=== PATIENT | female | born 1950 | race Caucasian/White ===

== ENCOUNTER → 2019-03-07 09:11 | Outpatient (CLI) | payer MEDICARE, SELFPAY ==
[2019-03-07 10:18] LABS: Add Manual Diff / Slide Review NO; Basophils Absolute Auto 0 /uL (0-100); Eosinophils Absolute Auto 100 /uL (0-450); Eosinophils Percent Auto 2.2 % (2-4); Hematocrit 36.6 % (36-46); Lymphocytes Absolute Auto 2100 /uL (1100-4500); Lymphocytes Percent Auto 43.9 % (25-40); Mean Corpuscular HGB Conc 32.7 % (30-36); Mean Corpuscular Hemoglobin 26.7 PG (26-34); Mean Corpuscular Volume 81.6 fL (80-100); Monocytes Absolute Auto 500 /uL (0-900); Monocytes Percent Auto 9.8 % (3-14); Neutrophils Absolute Auto 2100 /uL (1500-7000); Neutrophils Percent Auto 43.1 % (50-75); Platelet Count 164 X10^3/uL (150-400); Red Blood Cell Count 4.48 X10^6/uL (4.0-5.2); Red Cell Distribution Width 14.6 % (11.6-14.8); White Blood Cell Count 4.9 X10^3/uL (4.5-11.0)
[2019-03-07 10:25] LABS: Hemoglobin A1C% w Est Avg Glu 9.3 % (4.0-6.0)
[2019-03-07 10:43] LABS: Creatinine Urine Random 85.7 mg/dL
[2019-03-07 10:48] LABS: Alanine Aminotransferase 20 IU/L (9-52); Albumin 3.9 g/dL (3.5-5.0); Albumin Globulin Ratio 1.4 (1.0-2.8); Alkaline Phosphatase 79 U/L (38-126); Aspartate Aminotransferase 31 IU/L (14-36); BUN Creatinine Ratio 21.4 (6-22); Bilirubin Total 0.4 mg/dL (0.2-1.3); Blood Urea Nitrogen 15 mg/dL (7-17); Calcium 9.6 mg/dL (8.4-10.2); Carbon Dioxide 25 mmol/L (22-32); Chloride 101 mmol/L (98-107); Cholesterol 121 mg/dL (140-199); Estimated Glomerular Filt Rate > 60.0 mL/min (>60); Globulin 2.8 g/dL (1.7-4.1); Glucose 195 mg/dL (80-110); HDL Cholesterol 55 mg/dL (40-60); HEMOLYSIS < 15 (0-50); LDL Cholesterol Calculated 34 mg/dL (<100); Potassium 4.5 mmol/L (3.4-5.1); Sodium 135 mmol/L (137-145); Total Protein 6.7 g/dL (6.3-8.2); Triglycerides 160 mg/dL (35-150)
[2019-03-07 10:50] LABS: Microalbumi Creatinin Ratio Ur 75.8 ug/mg CR (<30); Microalbumin Urine Random 6.5 mg/dL (0-1.6)
== END ==
PROVIDERS: Visit Provider Family Medicine
DX: E11.9 Type 2 diabetes mellitus without complications (principal); I10 Essential (primary) hypertension; E78.5 Hyperlipidemia, unspecified
CPT/HCPCS: 36415; 80053; 80061; 82043; 82570; 83036; 84443; 85025

== ENCOUNTER → 2019-04-02 17:52 | Outpatient (CLI) | payer MEDICARE, SELFPAY ==
--- NOTE | 2019-04-02 17:54 | DI.RAD.S_ITS ---
PROCEDURE: XR KNEE LT 3V INDICATIONS: Leg Pain, Lateral TECHNIQUE: 3 views of the knee were acquired. COMPARISON: None. FINDINGS: Bones: No acute fractures or dislocations. There are tricompartmental degenerative changes of the left knee with moderate lateral compartment joint space narrowing and prominent marginal osteophytes. There is expansile deformity of the proximal left fibular diaphysis with overlying soft tissue swelling. No identifiable intraosseous lesion. No suspicious periosteal reaction. Faint calcifications posterior to the fibula on the lateral view are favored to represent vascular calcifications. No overlying soft tissue mass lesions. Soft tissues: No joint effusion. No suspicious soft tissue calcifications. IMPRESSION: 1. Lateral knee soft tissue swelling without underlying fracture or dislocation. 2. Expansile deformity involving the proximal left tibial without focal intraosseous lesion, periosteal reaction, or overlying soft tissue mass. Findings may represent sequela of remote injury. Consider further evaluation with advanced imaging such as CT or MRI. 3. 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 Dictated by: Leon Rodriguez M.D. on 04/03/2019 at 12:37 Approved by: Leon Rodriguez M.D. on 04/03/2019 at 12:50
== END ==
PROVIDERS: PCP Family Medicine; Visit Provider Family Medicine
DX: M25.562 Pain in left knee (principal); M79.89 Other specified soft tissue disorders
CPT/HCPCS: 73562

== ENCOUNTER → 2019-07-19 09:19 | Outpatient (CLI) | payer MEDICARE, SELFPAY ==
[2019-07-19 09:54] LABS: Hemoglobin A1C% w Est Avg Glu 9.4 % (4.0-6.0)
[2019-07-19 10:25] LABS: Alanine Aminotransferase 27 IU/L (<35); Albumin 4.4 g/dL (3.5-5.0); Albumin Globulin Ratio 1.5 (1.0-2.8); Alkaline Phosphatase 88 U/L (38-126); Aspartate Aminotransferase 49 IU/L (14-36); BUN Creatinine Ratio 23.8 (6-22); Bilirubin Total 0.5 mg/dL (0.2-1.3); Blood Urea Nitrogen 19 mg/dL (7-17); Calcium 10.5 mg/dL (8.4-10.2); Carbon Dioxide 25 mmol/L (22-32); Chloride 101 mmol/L (98-107); Estimated Glomerular Filt Rate > 60.0 mL/min (>60); Globulin 2.9 g/dL (1.7-4.1); Glucose 149 mg/dL (80-110); HEMOLYSIS < 15 (0-50); Sodium 136 mmol/L (137-145); Total Protein 7.3 g/dL (6.3-8.2)
[2019-07-19 10:27] LABS: Potassium 5.4 mmol/L (3.4-5.1)
== END ==
PROVIDERS: PCP Family Medicine; Visit Provider Family Medicine
DX: E11.9 Type 2 diabetes mellitus without complications (principal); E78.5 Hyperlipidemia, unspecified; I10 Essential (primary) hypertension
CPT/HCPCS: 36415; 80053; 83036

== ENCOUNTER → 2019-12-12 08:13 | Outpatient (CLI) | payer MEDICARE, SELFPAY ==
[2019-12-12 08:43] LABS: Hemoglobin A1C% w Est Avg Glu 9.6 % (4.0-6.0)
[2019-12-12 08:55] LABS: Alanine Aminotransferase 17 IU/L (<35); Albumin 4.1 g/dL (3.5-5.0); Albumin Globulin Ratio 1.4 (1.0-2.8); Alkaline Phosphatase 98 U/L (38-126); Aspartate Aminotransferase 29 IU/L (14-36); Bilirubin Total 0.4 mg/dL (0.2-1.3); Blood Urea Nitrogen 18 mg/dL (7-17); Calcium 9.9 mg/dL (8.4-10.2); Carbon Dioxide 22 mmol/L (22-32); Chloride 106 mmol/L (98-107); Cholesterol 116 mg/dL (140-199); Estimated Glomerular Filt Rate > 60.0 mL/min (>60); Globulin 2.9 g/dL (1.7-4.1); Glucose 162 mg/dL (80-110); HDL Cholesterol 52 mg/dL (40-60); HEMOLYSIS < 15 (0-50); LDL Cholesterol Calculated 36 mg/dL (<100); Potassium 4.7 mmol/L (3.4-5.1); Sodium 137 mmol/L (137-145); Triglycerides 142 mg/dL (35-150)
== END ==
PROVIDERS: PCP Family Medicine; Referring Provider Family Medicine; Visit Provider Internal Medicine
DX: E11.9 Type 2 diabetes mellitus without complications (principal); E78.5 Hyperlipidemia, unspecified; I10 Essential (primary) hypertension
CPT/HCPCS: 36415; 80053; 80061; 83036

== ENCOUNTER → 2019-12-26 07:56 | Outpatient (CLI) | payer MEDICARE, SELFPAY ==
--- NOTE | 2019-12-26 07:58 | DI.ECHO.S_ITS ---
[facility]---------+ [facility] +---------+ : : [address] : [place] : : : : [id number] : : : : Phone: [phone]+ Echocardiogram Report + + :Name: LEOBARDO KRUSE Study Date: 12/26/2019 Height: 65 in : :[facility] Weight: 210 lb : : Gender: Female BSA: 2.0 m2 : :: 1950 Age: 69 yrs BP: 175/70 mmHg: :Reason For Study: ASD : : Performed By: Rigoberto Ta : :Referring: RACHELL ROCHE R : + + Interpretation Summary Left ventricular systolic function is challenging to assess because of the ventricular bigeminy producing a significant dyssynchronous contraction pattern and irregular rhythm but grossly appears to be mildly depressed with an estimated ejection fraction of 45 to 55% with mild global hypokinesis and probable more significant hypokinesis in the proximal one third of the inferior wall. Left ventricular size is at the upper limits of normal with normal wall thickness. Diastolic function is also challenging to assess because of the irregular rhythm but some diastolic parameters suggest significantly elevated filling pressures. Clinical correlation is recommended. The right ventricle grossly appears normal in size and systolic function. Right ventricular systolic pressure is estimated at 30 mmHg and a CVP of 3 mmHg. There is moderate left atrial enlargement while right atrial size is normal. The interatrial septum grossly appears intact without any obvious evidence for an atrial septal defect. There is mild tricuspid and mild pulmonic valve regurgitation but no other significant valvular abnormality. The ascending aorta is mildly enlarged. The patient was in sinus rhythm with frequent PVCs, often in a bigeminal pattern. Procedure: A two-dimensional transthoracic echocardiogram with color flow and Doppler was performed. The study quality was technically good. There is no prior echocardiogram noted for this patient. The patient was in normal sinus rhythm during the exam. The patient had frequent PVCs during the exam. In a bigeminal pattern. Left Ventricle: Left ventricular size is at the upper limits of normal. There is normal left ventricular wall thickness. Left ventricular systolic function is mildly reduced. Left ventricular ejection fraction is estimated to be 45-55. There is mild global hypokinesis of the left ventricle. Probable hypokinesis in the proximal third of the inferior wall. Diastolic parameters suggest a pseudonormalization pattern, consistent with probable elevated filling pressures. Right Ventricle: The right ventricle is normal in size and function. Atria: The left atrium is moderately dilated. Right atrial size is normal. The interatrial septum is intact with no evidence for an atrial septal defect. There is no Doppler evidence for an atrial septal defect. Mitral Valve: The mitral valve is normal in structure and function. There is trace mitral regurgitation. Aortic Valve: The aortic valve is trileaflet. The aortic valve opens well. No aortic regurgitation is present. Tricuspid Valve: The tricuspid valve is normal in structure and function. There is mild tricuspid regurgitation. The right ventricular systolic pressure is estimated to be at least 30 mmHg based on an estimated right atrial pressure of 3 mm Hg. Pulmonic Valve: The pulmonic valve is normal in structure and function. There is mild pulmonic regurgitation. There is no other significant valvular heart disease. Great Vessels: The aortic root is normal size. The ascending aorta is mildly enlarged. The pulmonary artery is normal size. The IVC is of normal diameter and collapses greater than 50% with a sniff. This suggests a low right atrial pressure of 3 mm Hg. Pericardium/ Pleura There is no pericardial effusion. There is no pleural effusion. MMode/2D Measurements & Calculations LVIDd: 5.4 cm LVOT diam: 2.5 cm LVIDs: 3.9 cm Ao root diam: 3.3 cm FS: 26.8 % asc Aorta Diam: 3.6 cm EPSS: 1.3 cm Ao Arch Diam (Prox Trans): 2.7 cm IVSd: 0.98 cm LVPWd: 0.79 cm LV suazo. diameter/BSA (cm/m^2): 2.6 LV sys. diameter/BSA (cm/m^2): 1.9 LA dimension: 4.5 cm RA long axis: 5.2 cm LA A2 area: 27.1 cm2 RA area: 18.3 cm2 LA A4 area: 27.4 cm2 RA vol: 54.8 ml LA length (vol): 7.1 cm RA : 27.1 ml/m2 LA vol: 88.7 ml IVC diam: 1.5 cm LA vol index: 43.9 ml/m2 RVD1 (basal): 3.7 cm RVD2 (mid): 4.2 cm Doppler Measurements & Calculations Ao V2 max: 164.8 cm/sec LVOT Max Donny: 73.3 cm/sec Ao V2 mean: 111.9 cm/sec LV V1 max P.1 mmHg Ao max P.9 mmHg LV V1 VTI: 17.6 cm Ao mean P.6 mmHg MOLLY(I,D): 2.4 cm2 Ao V2 VTI: 34.1 cm MOLLY(V,D): 2.1 cm2 sev ratio: 0.52 MOLLY indexed to BSA (cm^2/m^2): 1.2 MV E max donny: 84.5 cm/sec TR max donny: 257.7 cm/sec MV A max donny: 58.9 cm/sec TR max P.6 mmHg MV E/A: 1.4 PA V2 max: 93.2 cm/sec Med Peak E' Donny: 2.3 cm/sec PA V2 mean: 64.7 cm/sec E/E' med: 36.5 PA mean P.8 mmHg Lat Peak E' Donny: 5.4 cm/sec PA pr(Accel): 14.8 mmHg E/E' lat: 15.7 E/e' average: 26.1 MV dec time: 0.13 sec SV(LVOT): 83.4 ml Reading Physician:PM
== END ==
PROVIDERS: PCP Internal Medicine; Referring Provider Internal Medicine; Visit Provider Internal Medicine
DX: Q21.1 Atrial septal defect (principal); I07.1 Rheumatic tricuspid insufficiency; I37.1 Nonrheumatic pulmonary valve insufficiency; I77.89 Other specified disorders of arteries and arterioles
CPT/HCPCS: 93306

== ENCOUNTER → 2020-09-24 07:54 | Outpatient (CLI) | payer OTHER, SELFPAY ==
[2020-09-24 09:11] LABS: Add Manual Diff / Slide Review NO; Basophils Absolute Auto 100 /uL (0-100); Basophils Percent Auto 0.9 % (0-2); Eosinophils Absolute Auto 100 /uL (0-450); Eosinophils Percent Auto 2.6 % (2-4); Hematocrit 39.1 % (36-46); Hemoglobin 12.9 g/dL (12.0-16.0); Lymphocytes Absolute Auto 2700 /uL (1100-4500); Lymphocytes Percent Auto 47.3 % (25-40); Mean Corpuscular HGB Conc 32.9 % (30-36); Mean Corpuscular Hemoglobin 27.4 PG (26-34); Mean Corpuscular Volume 83.3 fL (80-100); Monocytes Absolute Auto 600 /uL (0-900); Monocytes Percent Auto 9.8 % (3-14); Neutrophils Absolute Auto 2200 /uL (1500-7000); Neutrophils Percent Auto 39.4 % (50-75); Platelet Count 179 X10^3/uL (150-400); Red Cell Distribution Width 15.2 % (11.6-14.8); White Blood Cell Count 5.7 X10^3/uL (4.5-11.0)
[2020-09-24 09:31] LABS: Alanine Aminotransferase 20 IU/L (<35); Albumin 4.3 g/dL (3.5-5.0); Albumin Globulin Ratio 1.4 (1.0-2.8); Alkaline Phosphatase 79 U/L (38-126); Aspartate Aminotransferase 31 IU/L (14-36); BUN Creatinine Ratio 28.2 (6-22); Bilirubin Total 0.3 mg/dL (0.2-1.3); Blood Urea Nitrogen 24 mg/dL (7-17); Calcium 10.2 mg/dL (8.4-10.2); Carbon Dioxide 26 mmol/L (22-32); Chloride 105 mmol/L (98-107); Cholesterol 129 mg/dL (140-199); Estimated Glomerular Filt Rate > 60.0 mL/min (>60); Glucose 108 mg/dL (80-110); HDL Cholesterol 50 mg/dL (40-60); HEMOLYSIS < 15 (0-50); Hemoglobin A1C% w Est Avg Glu 7.7 % (4.0-6.0); LDL Cholesterol Calculated 43 mg/dL (<100); Potassium 4.4 mmol/L (3.4-5.1); Sodium 137 mmol/L (137-145); Total Protein 7.3 g/dL (6.3-8.2); Triglycerides 180 mg/dL (35-150)
[2020-09-24 10:06] LABS: Creatinine Urine Random 118.1 mg/dL
[2020-09-24 10:11] LABS: Microalbumi Creatinin Ratio Ur 31.3 ug/mg CR (<30); Microalbumin Urine Random 3.7 mg/dL (0-1.6)
== END ==
PROVIDERS: PCP Physician Assistant; Referring Provider Physician Assistant; Visit Provider Physician Assistant
DX: E11.9 Type 2 diabetes mellitus without complications (principal); I10 Essential (primary) hypertension; E78.5 Hyperlipidemia, unspecified
CPT/HCPCS: 36415; 80053; 80061; 82043; 82570; 83036; 85025

== ENCOUNTER 2022-05-28 00:32 | Emergency (ER) | payer OTHER, SELFPAY ==
[2022-05-28] VITALS (29 sets, daily range): BP systolic 123–186; BP diastolic 67–87; PULSE 42–116; RESP 12–55; O2SAT 95–99; BMI 36.4
--- NOTE | 2022-05-28 00:33 | DI.CT.S_ITS ---
PROCEDURE: CT STROKE INDICATIONS: Positive BE-FAST, Stroke symptoms TECHNIQUE: Noncontrast 4.5 mm thick angled axial sections acquired from the foramen magnum to the vertex, with coronal reformats. For radiation dose reduction, the following was used: automated exposure control, adjustment of mA and/or kV according to patient size. COMPARISON: None. FINDINGS: Image quality: Excellent. CSF spaces: Basal cisterns are patent. No extra-axial fluid collections. Ventricles are normal in size and shape. Brain: No intracranial hemorrhage, mass, or mass effect. Avelar-white matter interface appears preserved. Skull and face: Calvarium and visualized facial bones appear intact, without suspicious lesions. Sinuses: Visualized sinuses and mastoids are clear. IMPRESSION: 1. No acute intracranial abnormality. Specifically, no intracranial hemorrhage or other imaging contraindications to tPA. Findings reported to Dr. Cevallos on 05/28/2022 at 12:47 a.m.. This study fulfills neurological imaging criteria for inclusion or exclusion of acute stroke therapies based on available published neurological guidelines. Dictated by: Toney Lange M.D. on 05/28/2022 at 0:47 Approved by: Toney Lange M.D. on 05/28/2022 at 0:49
--- NOTE | 2022-05-28 00:33 | DI.RAD.S_ITS ---
PROCEDURE: XR CHEST 1V INDICATIONS: Possible stroke TECHNIQUE: One view of the chest was acquired. COMPARISON: None. FINDINGS: Surgical changes and devices: None. Lungs and pleura: There are linear right infrahilar opacities likely representing atelectasis. There is a small indistinct nodular opacity peripherally in the left lung base measuring up to 0.6 cm. No pleural effusions or pneumothorax. Mediastinum: Mediastinal contours appear normal. Heart size is normal. Bones and chest wall: No suspicious bony lesions. Overlying soft tissues appear unremarkable. IMPRESSION: 1. Small indistinct nodular opacity in the left lung base is nonspecific and may represent scarring, but a neoplastic nodule cannot be excluded. 2. Right infrahilar linear opacities likely represent atelectasis. Consider a short-term follow-up PA and lateral study for further evaluation. Dictated by: Toney Lange M.D. on 05/28/2022 at 2:19 Approved by: Toney Lange M.D. on 05/28/2022 at 2:21
--- NOTE | 2022-05-28 00:36 | DI.CT.S_ITS ---
PROCEDURE: CT ANGIO HEAD AND NECK INDICATIONS: acute dysarthria TECHNIQUE: After the administration of intravenous contrast, 1 mm thick sections acquired from the aortic arch through the Hoh of More[place]. Post-contrast 4.5 mm thick sections then re-acquired from the foramen magnum to the vertex. 3-dimensional [id number] (MIP) and/or volume rendering reformats were acquired of the central intracranial vasculature and neck separately. For radiation dose reduction, the following was used: automated exposure control, adjustment of mA and/or kV according to patient size. COMPARISON: None. FINDINGS: Image quality: Excellent. BRAIN: CSF spaces: Basal cisterns are patent. No extra-axial fluid collections. Ventricles are normal in size and shape. Brain: No intracranial hemorrhage, mass, or mass effect. Avelar-white matter interface appears preserved. No abnormal intracranial enhancement. Skull and face: Calvarium and facial bones appear intact, without suspicious lesions. Orbits appear normal. Sinuses: Sinuses and mastoids are clear. HEAD CT ANGIOGRAPHY: Anterior circulation: Intracranial internal carotid arteries are normal in size and appear patent bilaterally. There is mild atherosclerotic calcification along the cavernous segments of the internal carotid arteries. The paired anterior cerebral arteries appear patent bilaterally. The anterior communicating artery also appears patent. The middle cerebral arteries appear patent bilaterally. No high-grade stenosis, occlusion, or filling defects. No cerebral aneurysms identified. Posterior circulation: There is a left dominant vertebrobasilar system. A diminutive right vertebral artery appears to terminate in a posterior inferior cerebellar artery. The basilar artery appears supplied by the left vertebral artery. The posterior cerebral arteries appears patent bilaterally. There is persistent circulation on the left, with the left posterior cerebral artery supplied by a posterior communicating artery. No high-grade stenosis, occlusion, or filling defects. No cerebral aneurysms identified. NECK CT ANGIOGRAPHY: Carotid system: The great vessels demonstrate a bovine aortic arch with common origin of the right brachiocephalic and left common carotid arteries as they arise from the aortic arch. The origins of the common carotid arteries appear patent. The common carotid arteries demonstrate normal caliber and courses. There is minimal calcified plaque in the carotid bulbs with minimal narrowing of less than 25%. The internal carotid arteries demonstrate normal calibers and courses. Posterior circulation: There is a left dominant vertebrobasilar system with a diminutive right vertebral artery. The vertebral arteries appear patent at their origins. The distal right vertebral artery appears to terminate in a posterior inferior cerebellar artery, an anatomic variant. The basilar artery is supplied by the left vertebral artery. Soft tissues: Visualized neck soft tissues demonstrate no suspicious abnormalities. Bones: No suspicious bony lesions. Visualized cervical spine demonstrates straightening of the cervical lordosis. There is multilevel degenerative disc disease and facet joint arthropathy. IMPRESSION: 1. No high-grade stenosis or occlusion of the central intracranial arteries. 2. No high-grade stenosis or occlusion of the head and neck arteries. Any quantitative measurements of stenosis were performed using NASCET criteria. Dictated by: Toney Lange M.D. on 05/28/2022 at 1:09 Approved by: Toney Lange M.D. on 05/28/2022 at 1:14
--- NOTE | 2022-05-28 00:36 | ED_ITS ---
HPI - General Adult General Chief complaint: Neuro Symptoms/Deficit Stated complaint: code stroke Time Seen by Provider: 05/28/22 00:35 History of Present Illness HPI narrative: 72-year-old woman with a history of hypertension, diabetes, hyperlipidemia, reflux, history of chronic atrial septal defect who called 911 after noting acute onset of difficulty with speech, feeling like she could not find words and that her tongue would not move at 11:40 p.m. tonight. She was talking with jinny laguerre at the time, very firm onset time. Code stroke is called. Medics note no other acute neurologic findings aside from the dysarthria. Patient is not anticoagulated, she has not had recent surgeries or instrumentation done. She takes an aspirin a day knowing that she does have the small ASD. She describes no recent illnesses, fevers, cough, palpitations, chest pain, headaches, nausea, vomiting, diarrhea. Related Data Home Medications Medication Instructions Recorded Confirmed B-complex with vitamin C (Super B 1 tab PO DAILY 12/10/18 12/13/19 Complex-Vitamin C tablet) aspirin 81 mg tablet,delayed 81 mg PO DAILY 12/10/18 12/13/19 release (Adult Aspirin Regimen) calcium carb-vit R1-okvjdidgm-kzlh 1 tab PO BID 12/10/18 12/13/19 333 mg-200 unit-133 mg-5 mg tablet coenzyme Q10 75 mg capsule (Ultra 50 mg PO DAILY 12/10/18 12/13/19 CoQ10) cranberry 400 mg capsule 400 mg PO DAILY 12/10/18 12/13/19 ibuprofen 200 mg capsule 600 mg PO .qhs PRN 12/10/18 12/13/19 milk thistle seed extract 175 mg 175 mg PO BID 12/10/18 12/13/19 capsule multivitamin 1 tab PO DAILY 12/10/18 12/13/19 omega-3 fatty acids 1,000 mg 1,000 mg PO DAILY 12/10/18 12/13/19 capsule (Fish Oil Concentrate) Previous Rx's Medication Instructions Recorded nystatin 100,000 unit/gram topical 1 applictn topical BID #30 grams 12/10/18 cream blood-glucose meter (Blood Glucose #1 ea 12/13/19 Monitoring kit) nystatin-triamcinolone 100,000 1 applictn topical TID #60 grams 12/13/19 unit/g-0.1 % topical cream glipizide 5 mg tablet, extended 10 mg PO BID #360 tabs 04/28/20 release 24 hr pen needle, diabetic 32 gauge x #100 ea 07/07/2007/13 (BD Ultra-Fine Micro Pen Needle) lisinopril 40 mg tablet 40 mg PO DAILY #30 tabs 07/13/20 amlodipine 2.5 mg tablet 2.5 mg PO DAILY #30 tabs 07/27/20 liraglutide 0.6 mg/0.1 mL (18 mg/3 1.8 mg (0.3 mL) SUBCUT DAILY #27 mL 07/27/20 mL) subcutaneous pen injector (WibiData 3-Jarrett) metformin 1,000 mg tablet 1,000 mg PO BID #60 tabs 07/27/20 metoprolol succinate 25 mg 25 mg PO DAILY #30 tabs 07/27/20 tablet,extended release 24 hr omeprazole 20 mg capsule,delayed 20 mg PO DAILY #30 caps 07/27/20 release rosuvastatin 40 mg tablet 40 mg PO DAILY #30 tabs 07/27/20 Allergies Allergy/AdvReac Type Severity Reaction Status Date / Time simvastatin Allergy Mild unknown Verified 12/13/19 14:10 fluticasone [From Flonase] AdvReac Intermediate Migraine Verified 12/13/19 14:10 Review of Systems Review of Systems Narrative: Remainder of complete review of systems is otherwise unremarkable except for that included in the HPI. Patient History Medical History Atrial septal defect GERD (gastroesophageal reflux disease) HTN (hypertension) Hyperlipidemia Type 2 diabetes mellitus with hyperglycemia Surgical History Anesthesia Broken leg Heart defect History of appendectomy History of bladder surgery History of section History of surgery Family History Father Cancer Social History Smoking Status: Never smoker alcohol intake: never Smoking Status: Never smoker Exam Initial Vital Signs Initial Vital Signs: Vital Signs Pulse Rate 42 L 05/28/22 00:44 Blood Pressure 123/75 05/28/22 00:44 Pulse Oximetry 99 05/28/22 00:44 General: Healthy appearing, in mild distress distress. Well-nourished well- developed HEENT: Moist mucous membranes, normal sclera with reactive pupils, extraocular eye movements symmetrical and intact. Neck: No JVD, supple Respiratory: Lungs are clear to auscultation, no wheezing no rales no rhonchi. Full and symmetrical air movement Cardiac: Regular rate and rhythm no murmurs no bruits Abdomen: Soft, nontender, good bowel tones, no flank pain Skin: Warm and dry, no rashes Neurologic: Mild right facial droop, tongue deviates to the right when extruded, dysarthria and word-finding difficulties, mild weakness right upper and lower extremities with mild ataxia kemwzy-ie-gqay on the right side. Extremities: No trauma, well perfused Psych: Cooperative, appropriate insight and affect NIH Stroke Scale/Score (NIHSS) from [facility] on 05/28/2022 RESULT SUMMARY: 6 points NIH Stroke Scale INPUTS: 1A: Level of consciousness ?> 0 = Alert; keenly responsive 1B: Ask month and age ?> 0 = Both questions right 1C: 'Blink eyes' & 'squeeze hands' ?> 0 = Performs both tasks 2: Horizontal extraocular movements ?> 0 = Normal 3: Visual wood ?> 0 = No visual loss 4: Facial palsy ?> 1 = Minor paralysis (flat nasolabial fold, smile asymmetry) 5A: Left arm motor drift ?> 0 = No drift for 10 seconds 5B: Right arm motor drift ?> 1 = Drift, but doesn't hit bed 6A: Left leg motor drift ?> 0 = No drift for 5 seconds 6B: Right leg motor drift ?> 1 = Drift, but doesn't hit bed 7: Limb Ataxia ?> 1 = Ataxia in 1 Limb 8: Sensation ?> 0 = Normal; no sensory loss 9: Language/aphasia ?> 1 = Mild-moderate aphasia: some obvious changes, without significant limitation 10: Dysarthria ?> 1 = Mild-moderate dysarthria: slurring but can be understood 11: Extinction/inattention ?> 0 = No abnormality Course Orders Ordered: ED Orders 05/28/22 00:33 CT Stroke Stat XR chest 1V Stat Complete Blood Count AUTO DIFF Stat Comprehensive Metabolic Panel Stat Magnesium Stat Partial Thromboplastin Time Stat Prothrombin Time INR Stat Troponin & CK Cardiac Panel Stat Urine Drug Screen, Rapid Stat EKG-12 Lead Stat 05/28/22 00:36 CT angio head and neck Stat 05/28/22 00:49 COVID19 - ADMIT ([employer] swab/PCR) Stat Discontinued Medications Alteplase, Recombinant (Activase) 8.9 mg in 8.9 mls @ 534 mls/hr 0.09 mg/kg (8.9 mg) IV NOW ONE Stop: 05/28/22 00:55 Last Infusion: 05/28/22 01:20 Dose: 0 mls/hr Documented By: Admin: 05/28/22 01:17 Dose: 534 mls/hr Documented By: NIDA Alteplase, Recombinant (Activase) 80.5 mg in 80.5 mls @ 80.5 mls/hr 0.81 mg/kg (80.5 mg) IV NOW ONE Stop: 05/28/22 01:53 Last Infusion: 05/28/22 01:19 Dose: 89.2 mls/hr Documented By: Admin: 05/28/22 01:18 Dose: 80.5 mls/hr Documented By: NIDA Ondansetron HCl (Ondansetron 4 Mg/2 Ml Inj) 4 mg IV NOW ONE Stop: 05/28/22 00:34 Vital Signs Vital signs: Vital Signs - 8 hr 05/28/22 01:05 05/28/22 00:44 05/28/22 00:44 Pulse Rate 73 42 L Respiratory Rate 12 Blood Pressure 154/74 H 123/75 Pulse Oximetry 98 99 Oxygen Delivery Method Room Air 05/28/22 00:45 05/28/22 00:45 05/28/22 00:50 Pulse Rate 74 76 Respiratory Rate 21 Blood Pressure 157/79 H Pulse Oximetry 97 97 Oxygen Delivery Method 05/28/22 00:53 05/28/22 00:53 05/28/22 00:55 Pulse Rate 77 75 Respiratory Rate 24 16 Blood Pressure 186/74 H Pulse Oximetry 97 98 Oxygen Delivery Method 05/28/22 01:00 05/28/22 01:01 05/28/22 01:01 Pulse Rate 73 73 Respiratory Rate 17 18 Blood Pressure 154/74 H Pulse Oximetry 98 96 Oxygen Delivery Method 05/28/22 01:05 05/28/22 01:05 05/28/22 01:10 Pulse Rate 74 Respiratory Rate 16 Blood Pressure 154/74 H 165/87 H Pulse Oximetry 96 Oxygen Delivery Method 05/28/22 01:10 05/28/22 01:14 05/28/22 01:15 Pulse Rate 76 73 Respiratory Rate 20 16 Blood Pressure 146/75 H Pulse Oximetry 97 97 Oxygen Delivery Method 05/28/22 01:15 05/28/22 01:20 05/28/22 01:20 Pulse Rate 71 73 Respiratory Rate 21 14 Blood Pressure 149/74 H Pulse Oximetry 97 97 Oxygen Delivery Method 05/28/22 01:25 05/28/22 01:25 05/28/22 01:30 Pulse Rate 72 Respiratory Rate 16 Blood Pressure 139/71 148/82 H Pulse Oximetry 96 Oxygen Delivery Method 05/28/22 01:30 05/28/22 01:35 05/28/22 01:35 Pulse Rate 74 76 Respiratory Rate 18 18 Blood Pressure 154/74 H Pulse Oximetry 97 97 Oxygen Delivery Method Medical Decision Making Lab Data Result diagrams: 05/28/22 00:33 05/28/22 00:33 Labs: Lab Results 05/28/22 05/28/22 05/28/22 Range/Units 00:33 00:33 00:33 WBC 5.7 (4.5-11.0) X10^3/uL RBC 4.94 (4.0-5.2) X10^6/uL Hgb 12.4 (12.0-16.0) g/dL Hct 37.5 (36-46) % MCV 75.9 L (80-100) fL MCH 25.0 L (26-34) PG MCHC 33.0 (30-36) % RDW 17.6 H (11.6-14.8) % Plt Count 194 (150-400) X10^3/uL Neut % (Auto) 28.8 L (50-75) % Lymph % (Auto) 57.4 H (25-40) % Briscoe % (Auto) 10.7 (3-14) % Eos % (Auto) 2.4 (2-4) % Baso % (Auto) 0.7 (0-2) % Neut # (Auto) 1700 (8440-8113) /uL Lymph # (Auto) 3300 (1865-7153) /uL Briscoe # (Auto) 600 (0-900) /uL Eos # (Auto) 100 (0-450) /uL Baso # (Auto) 0 (0-100) /uL PT 11.5 (10.1-12.7) SECONDS INR 1.0 (0.9-1.3) APTT 29 (26-36) SECONDS Sodium 139 (137-145) mmol/L Potassium 4.1 (3.4-5.1) mmol/L Chloride 106 (98-107) mmol/L Carbon Dioxide 23 (22-32) mmol/L BUN 11 (7-17) mg/dL Creatinine 0.74 (0.52-1.04) mg/dL Estimated GFR > 60 (>60) mL/min BUN/Creatinine Ratio 14.9 (6-22) Glucose 168 H (80-110) mg/dL Calcium 9.4 (8.4-10.2) mg/dL Magnesium 1.7 (1.6-2.3) mg/dL Total Bilirubin 0.3 (0.2-1.3) mg/dL AST 21 (14-36) IU/L ALT 17 (<35) IU/L Alkaline Phosphatase 98 (38-126) U/L Total Creatine Kinase 64 (30-135) U/L CK-MB (CK-2) TNP CK-MB (CK-2) Rel Index TNP Troponin I < 0.012 (0.01-0.034) ng/mL Total Protein 7.7 (6.3-8.2) g/dL Albumin 4.3 (3.5-5.0) g/dL Globulin 3.4 (1.7-4.1) g/dL Albumin/Globulin Ratio 1.3 (1.0-2.8) SARS-CoV-2 (PCR) (Negative) 05/28/22 Range/Units 00:49 WBC (4.5-11.0) X10^3/uL RBC (4.0-5.2) X10^6/uL Hgb (12.0-16.0) g/dL Hct (36-46) % MCV (80-100) fL MCH (26-34) PG MCHC (30-36) % RDW (11.6-14.8) % Plt Count (150-400) X10^3/uL Neut % (Auto) (50-75) % Lymph % (Auto) (25-40) % Briscoe % (Auto) (3-14) % Eos % (Auto) (2-4) % Baso % (Auto) (0-2) % Neut # (Auto) (0001-5300) /uL Lymph # (Auto) (6892-1393) /uL Briscoe # (Auto) (0-900) /uL Eos # (Auto) (0-450) /uL Baso # (Auto) (0-100) /uL PT (10.1-12.7) SECONDS INR (0.9-1.3) APTT (26-36) SECONDS Sodium (137-145) mmol/L Potassium (3.4-5.1) mmol/L Chloride (98-107) mmol/L Carbon Dioxide (22-32) mmol/L BUN (7-17) mg/dL Creatinine (0.52-1.04) mg/dL Estimated GFR (>60) mL/min BUN/Creatinine Ratio (6-22) Glucose (80-110) mg/dL Calcium (8.4-10.2) mg/dL Magnesium (1.6-2.3) mg/dL Total Bilirubin (0.2-1.3) mg/dL AST (14-36) IU/L ALT (<35) IU/L Alkaline Phosphatase (38-126) U/L Total Creatine Kinase (30-135) U/L CK-MB (CK-2) CK-MB (CK-2) Rel Index Troponin I (0.01-0.034) ng/mL Total Protein (6.3-8.2) g/dL Albumin (3.5-5.0) g/dL Globulin (1.7-4.1) g/dL Albumin/Globulin Ratio (1.0-2.8) SARS-CoV-2 (PCR) Negative (Negative) Point of Care Testing Glucose POC 167 Point of care testing: Point of Care Testing Glucose POC [address] scan - head: Radiologist's Impression: FINDINGS:? Image quality:? Excellent.? ? BRAIN:? CSF spaces:? Basal cisterns are patent.? No extra-axial fluid collections.? Ventricles are normal in size and shape.? ? Brain:? No intracranial hemorrhage, mass, or mass effect.? Avelar-white matter interface appears preserved.? No abnormal intracranial enhancement.? ? Skull and face:? Calvarium and facial bones appear intact, without suspicious lesions.? Orbits appear normal.? ? Sinuses:? Sinuses and mastoids are clear.? ? HEAD CT ANGIOGRAPHY:? Anterior circulation:? Intracranial internal carotid arteries are normal in size and appear patent bilaterally.? There is mild atherosclerotic calcification along th e cavernous segments of the internal carotid arteries.? The paired anterior cerebral arteries appear patent bilaterally.? The anterior communicating artery also appears patent. The middle cerebral arteries appear patent bilaterally.? No high-grade stenosis, occlusion, or filling defects.? No cerebral aneurysms identified. ? Posterior circulation:? There is a left dominant vertebrobasilar system.? A diminutive right vertebral artery appears to terminate in a posterior inferior cerebellar artery.? The basilar artery appears supplied by the left vertebral artery.? The posterior cerebral arteries appears patent bilaterally.? There is persistent circulation on the left, with the left posterior cerebral artery supplied by a posterior communicating artery.? No high-grade stenosis, occlusion, or filling defects.? No cerebral aneurysms identified. ? NECK CT ANGIOGRAPHY:? Carotid system:? The great vessels demonstrate a bovine aortic arch with common origin of the right brachiocephalic and left common carotid arteries as they arise from the aortic arch.? The origins of the common carotid arteries appear patent.? The common carotid arteries demonstrate normal caliber and courses.? There is minimal calcified plaque in the carotid bulbs with minimal narrowing of less than 25%.? The internal carotid arteries demonstrate normal calibers and courses.? ? Posterior circulation:? There is a left dominant vertebrobasilar system with a diminutive right vertebral artery.? The vertebral arteries appear patent at their origins.? The distal right vertebral artery appears to terminate in a posterior inferior cerebellar artery, an anatomic variant.? The basilar artery is supplied by the left vertebral artery. ? Soft tissues:? Visualized neck soft tissues demonstrate no suspicious abnormalit ies.? ? Bones:? No suspicious bony lesions.? Visualized cervical spine demonstrates straightening of the cervical lordosis.? There is multilevel degenerative disc disease and facet joint arthropathy.? ? IMPRESSION:? ? 1.? No high-grade stenosis or occlusion of the central intracranial arteries. ? 2. No high-grade stenosis or occlusion of the head and neck arteries. ? ? Any quantitative measurements of stenosis were performed using NASCET criteria.? ? ? Dictated by: Toney Lange M.D. on 05/28/2022 at 1:09 ? ECG Data Interpretation: Sinus rhythm at a rate of 76 Incomplete right bundle branch block No acute ischemic changes MDM Narrative Medical decision making narrative: 72-year-old woman was talking to family when she began to have acute and fairly severe dysarthria, moderate word-finding difficulties right-sided weakness moderate NIH score equals 6. Code stroke was called. Initial exam was the same as repeat exam pre and post CT. Family was at bedside along with the patient who is alert and entirely oriented. Informed discussion regarding tPA use was initiated. Entire family agree that tPA should be administered. 1252 Decision to give TPA -no contraindications, positive indications, informed consent obtained 1:01 Radiology confirms no bleed Confusion with actual TPA orders. 1:02 pharmacy on phone 1:06 dosing ability to override and pull TPA 1:13 triple confirmation (me, 2 nurses) of bolus and infusion dose 1:14 bolus admin time 1:[address] Gomez, stroke neurology. Agrees to accept patient post TPA for continued care, ED to ED transfer 2:15 ALS transport arranged and expected to arrive 1:48 pt notes decreased head pressure, slight improvement in speech 2:11 transport here. Patient is re-examined. Speech and speech fluency is much better. She is noticing that her right hand is now numb in a glove distribution. Still has good blood flow in that hand is warm. Questions are answered regarding transfer to the [facility]. She is safe for transport Critical Care Time Critical Care Time Critical Care Time: Yes Total Critical Care Time: 33 Attestation: Critical care time is separate from other billable procedures. There is a high probability of a significant, sudden or life-threatening deterioration that requires my full and direct attention, intervention and personal management. This critical care time includes consultation with family and other consulting doctors, review of records, and interpretation of data from labs, EKGs and imaging as well as managements of acute stroke with discussion with family, patient, consultants and arrangement for transfer after tPA administration Discharge Plan Departure Patient Disposition: [facility] Clinical Impression: Thrombolytic therapy administered within 2 hours of onset of symptoms Stroke Qualifiers: CVA mechanism: embolism Laterality of affected vessel: left Prescriptions: No Action glipizide 5 mg tablet extended release 24hr 10 mg PO BID Qty: 360 0RF Rx Instructions: NEEDS FOLLOW UP APPT W/[facility] FOR CONT'D FILLS. PLEASE CALL TO SET UP APPT. THANKS 04/28/20 (DME) pen needle, diabetic [BD Ultra-Fine Micro Pen Needle] 32 gauge x 1/4 needle See Rx Instructions .ROUTE .MEDSUPPLY Qty: 100 3RF Rx Instructions: Use once daily as directed lisinopril 40 mg tablet 40 mg PO DAILY Qty: 30 0RF Rx Instructions: PT NEEDS FOLLOW UP WITH PCP PRIOR TO FUTURE FILLS. PLEASE CALL CLINIC TO SCHED. APPT THANKS. 07/13/20 omeprazole 20 mg capsule,delayed release(DR/EC) 20 mg PO DAILY Qty: 30 0RF Rx Instructions: PT DUE FOR FOLLOW UP W/PCP. PLEASE CALL TO SCHED. APPT. THANKS 07/27/20 amlodipine 2.5 mg tablet 2.5 mg PO DAILY Qty: 30 0RF Rx Instructions: PT DUE FOR FOLLOW UP W/PCP. PLEASE CALL TO SCHED. APPT. THANKS 07/27/20 metoprolol succinate 25 mg tablet extended release 24 hr 25 mg PO DAILY Qty: 30 0RF Rx Instructions: PT DUE FOR FOLLOW UP W/PCP. PLEASE CALL TO SCHED. APPT. THANKS 07/27/20 metformin 1,000 mg tablet 1,000 mg PO BID Qty: 60 0RF Rx Instructions: PT DUE FOR FOLLOW UP W/PCP. PLEASE CALL TO SCHED. APPT. THANKS 07/27/20 Victoza 3-Jarrett 0.6 mg/0.1 mL (18 mg/3 mL) pen injector 1.8 mg SUBCUT DAILY Qty: 27 0RF Rx Instructions: PT DUE FOR FOLLOW UP W/PCP. PLEASE CALL TO SCHED. APPT. THANKS 07/27/20 rosuvastatin 40 mg tablet 40 mg PO DAILY Qty: 30 0RF Rx Instructions: PT DUE FOR FOLLOW UP W/PCP. PLEASE CALL TO SCHED. APPT. THANKS 07/27/20 multivitamin tablet 1 tab PO DAILY omega-3 fatty acids [Fish Oil Concentrate] 1,000 mg capsule 1,000 mg PO DAILY ibuprofen 200 mg capsule 600 mg PO .qhs PRN aspirin [Adult Aspirin Regimen] 81 mg tablet,delayed release (DR/EC) 81 mg PO DAILY cranberry 400 mg capsule 400 mg PO DAILY B-complex with vitamin C [Super B Complex-Vitamin C] tablet 1 tab PO DAILY Ultra CoQ10 75 mg capsule 50 mg PO DAILY calcium carb-D3-mag [id number] pr-avjl-zq-mg tablet 1 tab PO BID milk thistle seed extract 175 mg capsule 175 mg PO BID nystatin 100,000 unit/gram cream 1 applictn TOP BID Qty: 30 5RF (DME) blood-glucose meter [Blood Glucose Monitoring] Kit See Rx Instructions .ROUTE .MEDSUPPLY Qty: 1 0RF Rx Instructions: As directed nystatin-triamcinolone 100,000-0.1 unit/g-% cream 1 applictn TOP TID Qty: 60 3RF Referrals: Kat Victor PA-C [Primary Care Provider] -
[2022-05-28 00:48] LABS: Prothrombin Time 11.5 SECONDS (10.1-12.7)
[2022-05-28 00:50] LABS: PTT Partial Thromboplastin Tim 29 SECONDS (26-36)
[2022-05-28 00:53] LABS: Add Manual Diff / Slide Review NO; Alanine Aminotransferase 17 IU/L (<35); Albumin 4.3 g/dL (3.5-5.0); Albumin Globulin Ratio 1.3 (1.0-2.8); Alkaline Phosphatase 98 U/L (38-126); Aspartate Aminotransferase 21 IU/L (14-36); BUN Creatinine Ratio 14.9 (6-22); Basophils Absolute Auto 0 /uL (0-100); Basophils Percent Auto 0.7 % (0-2); Bilirubin Total 0.3 mg/dL (0.2-1.3); Blood Urea Nitrogen 11 mg/dL (7-17); Calcium 9.4 mg/dL (8.4-10.2); Carbon Dioxide 23 mmol/L (22-32); Chloride 106 mmol/L (98-107); Creatine Kinase 64 U/L (30-135); Eosinophils Absolute Auto 100 /uL (0-450); Eosinophils Percent Auto 2.4 % (2-4); Estimated Glomerular Filt Rate > 60 mL/min (>60); Globulin 3.4 g/dL (1.7-4.1); Glucose 168 mg/dL (80-110); HEMOLYSIS 26 (0-50); Hematocrit 37.5 % (36-46); Hemoglobin 12.4 g/dL (12.0-16.0); Lymphocytes Absolute Auto 3300 /uL (1100-4500); Lymphocytes Percent Auto 57.4 % (25-40); Magnesium 1.7 mg/dL (1.6-2.3); Mean Corpuscular Volume 75.9 fL (80-100); Monocytes Absolute Auto 600 /uL (0-900); Monocytes Percent Auto 10.7 % (3-14); Neutrophils Absolute Auto 1700 /uL (1500-7000); Neutrophils Percent Auto 28.8 % (50-75); Platelet Count 194 X10^3/uL (150-400); Potassium 4.1 mmol/L (3.4-5.1); Red Blood Cell Count 4.94 X10^6/uL (4.0-5.2); Red Cell Distribution Width 17.6 % (11.6-14.8); Sodium 139 mmol/L (137-145); Total Protein 7.7 g/dL (6.3-8.2); White Blood Cell Count 5.7 X10^3/uL (4.5-11.0)
[2022-05-28 01:04] LABS: Troponin I < 0.012 ng/mL (0.01-0.034)
[2022-05-28] MEDS: ALTEPLASE 534 MG IV (01:17)
[2022-05-28] MEDS: ALTEPLASE IV (01:18)
--- NOTE | 2022-05-28 01:40 | PC.NURSE ---
Pt having small improvement in speech at this time, pt reports that the pressure in her head has resolved.
[2022-05-28 01:54] LABS: COVID19 - ADMIT (NP swab/PCR) Negative (Negative)
== END 2022-05-28 02:51 | disposition short-term general hospital (02) ==
PROVIDERS: Emergency Provider Emergency Medicine; PCP Physician Assistant
DX: I63.9 Cerebral infarction, unspecified (principal); R29.706 NIHSS score 6; Z20.822 Contact with and (suspected) exposure to COVID-19; Z79.899 Other long term (current) drug therapy
CPT/HCPCS: 70450; 70496; 70498; 71045; 80053; 82550; 82962; 83735; 84484; 85025; 85610; 85730; 87635; 93005; 93010; 96365; 96366; 99284; 99291; C9803; J2997; Q9967

== ENCOUNTER → 2023-10-03 09:59 | Outpatient (CLI) | payer OTHER, SELFPAY ==
--- NOTE | 2023-10-03 10:01 | DI.CT.S_ITS ---
PROCEDURE: CT SINUS SCREEN WO CON INDICATIONS: Chronic pansinusitis TECHNIQUE: Noncontrast 3.0 mm axial images acquired from the frontal sinuses to the mid-sella, with coronal and sagittal reformats. For radiation dose reduction, the following was used: automated exposure control, adjustment of mA and/or kV according to patient size. COMPARISON: None. FINDINGS: Image quality: Excellent. Sinuses: Sinuses are clear. Ostiomeatal Complexes: Ostiomeatal complexes are patent. No Emilie cells. Miscellaneous: Visualized intra-orbital contents are normal. Bilateral salbador bullosa. No paradoxical turbinate curvature. Nasal septal deviation. IMPRESSION: Sinuses are clear. Ostiomeatal complexes are patent. Dictated by: Yina Tanner M.D. on 10/03/2023 at 13:29 Approved by: Yina Tanner M.D. on 10/03/2023 at 13:30
== END ==
PROVIDERS: PCP Nurse Practitioner Family; Referring Provider Otolaryngology; Visit Provider Otolaryngology
DX: J32.4 Chronic pansinusitis (principal); J34.89 Other specified disorders of nose and nasal sinuses
CPT/HCPCS: 70486

== ENCOUNTER → 2024-03-07 07:00 | Outpatient (CLI) | payer OTHER, SELFPAY ==
[2024-03-07 08:12] LABS: Add Manual Diff / Slide Review NO; Basophils Absolute Auto 0 /uL (0-100); Basophils Percent Auto 0.9 % (0-2); Eosinophils Absolute Auto 100 /uL (0-450); Eosinophils Percent Auto 1.7 % (2-4); Hematocrit 35.2 % (36-46); Hemoglobin 11.1 g/dL (12.0-16.0); Lymphocytes Absolute Auto 2100 /uL (1100-4500); Lymphocytes Percent Auto 49.2 % (25-40); Mean Corpuscular HGB Conc 31.7 % (30-36); Mean Corpuscular Hemoglobin 22.6 PG (26-34); Mean Corpuscular Volume 71.4 fL (80-100); Monocytes Absolute Auto 400 /uL (0-900); Monocytes Percent Auto 10.2 % (3-14); Neutrophils Absolute Auto 1600 /uL (1500-7000); Platelet Count 202 X10^3/uL (150-400); Red Blood Cell Count 4.93 X10^6/uL (4.0-5.2); Red Cell Distribution Width 18.3 % (11.6-14.8); White Blood Cell Count 4.3 X10^3/uL (4.5-11.0)
[2024-03-07 08:14] LABS: Hemoglobin A1C% w Est Avg Glu 6.9 % (4.0-6.0)
[2024-03-07 08:42] LABS: HEMOLYSIS < 15 (0-50); Iron 31 ug/dL (37-170)
[2024-03-07 08:46] LABS: Alanine Aminotransferase 18 IU/L (<35); Albumin 4.2 g/dL (3.5-5.0); Albumin Globulin Ratio 1.7 (1.0-2.8); Alkaline Phosphatase 86 U/L (38-126); Aspartate Aminotransferase 24 IU/L (14-36); BUN Creatinine Ratio 19.2 (6-22); Bilirubin Total 0.3 mg/dL (0.2-1.3); Blood Urea Nitrogen 15 mg/dL (7-17); Calcium 9.7 mg/dL (8.4-10.2); Carbon Dioxide 21 mmol/L (22-32); Chloride 106 mmol/L (98-107); Cholesterol 170 mg/dL (140-199); Estimated Glomerular Filt Rate > 60 mL/min (>60); Globulin 2.5 g/dL (1.7-4.1); Glucose 103 mg/dL (80-110); HDL Cholesterol 57 mg/dL (40-60); HEMOLYSIS < 15 (0-50); LDL Cholesterol Calculated 84 mg/dL (<100); Potassium 4.3 mmol/L (3.4-5.1); Sodium 138 mmol/L (137-145); Total Protein 6.7 g/dL (6.3-8.2); Triglycerides 145 mg/dL (35-150)
[2024-03-07 08:52] LABS: Percent Iron Saturation 8 % (15-50); Total Iron Binding Capacity 376 ug/dL (265-497); Transferrin 311 mg/dL (206-381)
[2024-03-07 09:09] LABS: TSH w/ Reflex to FT4 1.76 uIU/mL (0.47-4.68)
[2024-03-07 09:14] LABS: Ferritin 6 ng/mL (11-264)
[2024-03-07 11:55] LABS: Creatinine Urine Random 76.81 mg/dL
[2024-03-07 12:02] LABS: Microalbumin Urine Random 1.8 mg/dL (0-1.6)
== END ==
PROVIDERS: PCP Nurse Practitioner Family; Referring Provider Nurse Practitioner Family; Visit Provider Nurse Practitioner Family
DX: R00.1 Bradycardia, unspecified (principal); E11.9 Type 2 diabetes mellitus without complications; E78.5 Hyperlipidemia, unspecified; R71.8 Other abnormality of red blood cells
CPT/HCPCS: 36415; 80053; 80061; 82043; 82570; 82728; 83036; 83540; 83550; 84443; 85025

== ENCOUNTER → 2024-09-06 14:14 | Outpatient (CLI) | payer OTHER, SELFPAY ==
--- NOTE | 2024-09-06 14:16 | DI.RAD.S_ITS ---
PROCEDURE: XR DEXA AXIAL SKELETON INDICATIONS: MENOPAUSAL DISORDER COMPARISON: None. FINDINGS: Lumbar Spine: Bone mineral density 1.039 g/cm2, T score -0.4. Left Femoral Neck: Bone mineral density 0.489 g/cm2, T score -3.2. Left Hip: Bone mineral density 0.592 g/cm2, T score -2.9. Fracture Risk Calculation (when applicable): 10-year fracture risk of a major osteoporotic fracture 30 percent and of a hip fracture 12 percent. (T score greater or equal to -1.0 to: NORMAL) (T score from -1.1 to -2.4: OSTEOPENIA) (T score less than or equal to -2.5: OSTEOPOROSIS) IMPRESSION: Osteoporosis. Follow-up guidelines as follows: Osteoporosis: Consider a repeat DEXA and Vertebral Fracture Assessment (VFA) exam in 2 years or sooner if medically necessary, to reassess this patient's status. Osteopenia: Consider a repeat DEXA in 2-3 years to reassess this patient's status, or if there is a new clinical indication. Normal: Consider a repeat DEXA in 5 years or sooner, or if there is a new clinical indication. All treatment decisions require clinical judgment and consideration of individual patient factors, including patient preferences, comorbidities, previous drug use, risk factors not captured in the FRAX model (e.g., frailty, falls, vitamin D deficiency, increased bone turnover, interval significant decline in bone density ) and possible under- or over-estimation of fracture risk by FRAX. In addition, the NOF Guide recommends that FDA-approved medical therapies be considered in postmenopausal women and men age >= 50 years with a: * Hip or vertebral (clinical or morphometric) fracture * T-score of <=-2.5 at the spine or hip * Ten-year fracture probability by FRAX of >= 3% for hip fracture or >=20% for major osteoporotic fracture. Dictated by: Heber Ambrosio M.D. on 09/06/2024 at 16:59 Approved by: Heber Ambrosio M.D. on 09/06/2024 at 16:59
== END ==
DX: N95.8 Other specified menopausal and perimenopausal disorders (principal); M81.0 Age-related osteoporosis without current pathological fracture
CPT/HCPCS: 77080

== ENCOUNTER → 2025-06-01 09:41 | Outpatient (CLI) | payer OTHER, SELFPAY ==
--- NOTE | 2025-06-01 09:44 | DI.RAD.S_ITS ---
PROCEDURE: XR SHOULDER RT MIN 2V INDICATIONS: Right shoulder strain 10 days TECHNIQUE: 3 views of the shoulder were acquired. COMPARISON: None. FINDINGS: Bones: No fractures or dislocations. No suspicious bony lesions. Visualized ribs appear intact. Acromioclavicular joint space narrowing with osteophytosis. Soft tissues: No suspicious soft tissue calcifications. IMPRESSION: No acute bony abnormality. Moderate acromioclavicular osteoarthritis. Dictated by: Eric Mera M.D. on 06/01/2025 at 11:28 Approved by: Eric Mera M.D. on 06/01/2025 at 11:30
== END ==
LOC: RAD 09:43
PROVIDERS: Visit Provider Nurse Practitioner Family
DX: S46.911A Strain of unspecified muscle, fascia and tendon at shoulder and upper arm level, right arm, initial encounter (principal); M19.011 Primary osteoarthritis, right shoulder; X58.XXXA Exposure to other specified factors, initial encounter
CPT/HCPCS: 73030